=== PATIENT | female | born 1995 | race Caucasian/White ===

== ENCOUNTER 2023-05-19 21:35 | Emergency (ER) | payer OTHER, SELFPAY ==
--- NOTE | ~2023-05-19 | CT_ITS ---
Noncontrast CT scan of the lumbar spine CLINICAL HISTORY: Radicular pain TECHNIQUE: Axial noncontrast imaging of the lumbar spine was performed. Sagittal and coronal reformat yaniv images were constructed. Dose reduction technique was used on this scan by utilizing automated ex posure control and iterative reconstruction technique. The dose-length product (DLP) was 921.97 mGy-c m. FINDINGS: There is no acute fracture or subluxation of the lumbar spine. There is posterior orthopedi c hardware at the L5 level. Intervertebral disc spaces are relatively well preserved throughout the l umbar spine. At L1-L2, there is no disc bulge or herniation. No spinal canal stenosis or neural foraminal narrowin g evident. At L2-L3, there is no disc bulge or herniation. No spinal canal stenosis or definite neural foraminal narrowing. At L3-L4, there is no disc bulge or herniation. No spinal canal stenosis or definite neural foraminal narrowing. At L4-L5, there is no disc bulge or herniation. No spinal canal stenosis or neural foraminal narrowin g. At L5-S1, there is no disc bulge or herniation. No spinal canal stenosis or neural foraminal narrowin g evident. Paravertebral soft tissues are unremarkable. Impression: Posterior L5 orthopedic hardware. No other significant findings. Reviewed, dictated and finalized at [facility]. Impression: Posterior L5 orthopedic hardware. No other significant findings.
[2023-05-19 21:59] VITALS: BP 127/85; PULSE 98; RESP 18; TEMP 36.4; O2SAT 99
[2023-05-19] MEDS: ACETAMINOPHEN 500 MG TABLET 1000 MG PO (23:59)
[2023-05-20] MEDS: IBUPROFEN 400 MG TABLET 800 MG PO
[2023-05-20] MEDS: LIDOCAINE 5% PATCH 1 PATCH TRANSDERM (00:01)
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
[2023-05-20 03:02] VITALS: BP 140/78; PULSE 92; RESP 14; TEMP 36.5; O2SAT 100
== END 2023-05-20 03:03 | disposition home or self-care (01) ==
PROVIDERS: Emergency Provider Physician Assistant
DX: M54.16 Radiculopathy, lumbar region (principal); Z98.1 Arthrodesis status
CPT/HCPCS: 72131; 81025; 99284; A9270

== ENCOUNTER 2023-08-06 12:25 | Emergency (ER) | payer OTHER, SELFPAY ==
--- NOTE | ~2023-08-06 | CT_ITS ---
EXAMINATION: CT abdomen pelvis wo con DATE: 08/06/2023 18:01 INDICATION: flank pain TECHNIQUE: Computed tomography (CT) of the abdomen and pelvis was performed without intravenous contr ast. Automated exposure control and iterative reconstruction technique were employed. The dose-length product was 656.46 mGy-cm. COMPARISON: None. FINDINGS: Lower thorax: Unremarkable Liver: Normal. Biliary/Gallbladder: Gallbladder is normal. No bile duct dilation. Pancreas: No mass or duct dilation. Spleen: Normal. Adrenals:No mass. Kidneys: No suspicious mass, obstructing stone, or hydronephrosis. GI tract: No small or large bowel dilation. Surgically absent appendix Mesentery/Peritoneum: No ascites, mass, or free air. Retroperitoneum: No mass. Pelvis: Pelvic organs are within normal limits. Soft Tissues: Soft tissues and body wall unremarkable. Bones: No acute osseous finding. Uncomplicated bilateral L5 pedicle screws. IMPRESSION: No acute abdominopelvic process detected. Reviewed, dictated and finalized at location K. ECTION OFFICER REFORMATORY
[2023-08-06 12:32] VITALS: BP 149/91; PULSE 129; RESP 20; TEMP 36.4; O2SAT 97
[2023-08-06 15:48] VITALS: BP 126/83; PULSE 110; RESP 23; TEMP 36.5; O2SAT 100
[2023-08-06 16:12] LABS: Hemoglobin 14.6 g/dL (12.0-15.0); Mean Corpuscular HGB Conc 34.8 g/dl (32-36); Mean Corpuscular Hemoglobin 33.3 pg (26-34); Mean Corpuscular Volume 95.9 fl (80-100); Mean Platelet Volume 9.3 fl (7.4-10.4); Platelet Count Result 331 k/mm3 (150-375); Red Blood Count 4.38 M/mm3 (4.2-5.4); Red Cell Distribution Width 13.4 % (11.5-14.5); White Blood Count 15.8 K/mm3 (4.5-10.0)
[2023-08-06] MEDS: SODIUM CHLORIDE 0.9% IV 1,000 ML 999 ML IV CONT (16:16)
[2023-08-06 16:22] LABS: Lactic Acid Reflex 1.2 mmol/L (0.7-2.0)
[2023-08-06 16:24] LABS: Alanine Aminotransferase 23 U/L (6-35); Albumin Level 4.5 g/dL (3.5-5.1); Alkaline Phosphatase 182 U/L (38-126); Anion Gap 15 mmol/L (8-16); Aspartate Amino Transferase 32 U/L (14-36); Bilirubin,Total 1.2 mg/dL (0.2-1.3); Blood Urea Nitrogen 10 mg/dL (7-17); Calcium 9.3 mg/dL (8.4-10.2); Carbon Dioxide 17 mmol/L (22-30); Chloride 102 mmol/L (98-107); Estimated CRCL calculation 98 ml/min; Estimated Glomerular Filt Rate > 60; Glucose 93 mg/dL (65-110); Sodium 134 mmol/L (137-145)
[2023-08-06 16:29] LABS: Appearance Urine Clear (Clear); Bacteria Urine None Seen /hpf; Bilirubin Urine Negative (Negative); Blood Urine Negative (Negative); Color Urine Yellow (Yellow); Glucose Urine UA Negative (Negative); Ketones Urine 1+ mg/dL (Negative); Leukocyte Esterase Ur Trace LEU/UL (Negative); Nitrate Urine Negative (Negative); Non Pathogenic Casts 0-2; Protein Urine Negative (Negative); RBC Urine 0-2 /hpf (0-2); Specific Grav Ur 1.003 (1.001-1.035); Squamous Epithelial Cell Urine None seen /hpf (Few); Urobilinogen Urine 0.2 mg/dL (<2.0)
[2023-08-06 16:32] LABS: Add Urine Microscopic? YES
--- NOTE | 2023-08-06 16:41 | ED.GENADULT ---
HPI - General Adult General Chief complaint: Urogenital-Female Stated complaint: kidney/bladder infection Time Seen by Provider: 08/06/23 15:49 History of Present Illness HPI narrative: Patient is a 28-year-old female who presents ER with abdominal cramping and discomfort. Sudden onset today. Associated with some discomfort with urination. Associated with sharp waves of pain. She also reports nausea vomiting with diarrhea. At 1st thought it may have been related to drinking alcohol last night. She is having pain radiating to her right flank and she tried drinking water but has not helped. Related Data Home Medications Medication Instructions Recorded Confirmed etonogestrel 68 mg subdermal 1 implant subdermal ONCE 06/06/23 06/06/23 implant (Nexplanon) Allergies Allergy/AdvReac Type Severity Reaction Status Date / Time No Known Allergies Allergy Verified 08/06/23 12:28 Review of Systems Review of Systems: All systems reviewed & are unremarkable except as noted in HPI and below Constitutional: Constitutional: Denies chills, Reports fatigue and Denies fever(s) Cardiovascular: Cardiovascular: Denies chest pain, Denies rapid heart rate and Denies radiating jaw, neck or arm pain Respiratory: Respiratory: Denies cough and Denies dyspnea Gastrointestinal: Gastrointestinal: Reports abdominal pain, Reports nausea and Reports vomiting Genitourinary: Genitourinary: Reports nocturia, Reports dysuria and Reports flank pain PMFSH Past Medical History Medical History (Updated 08/06/23 @ 18:23 by Ilya Patino MD) Anxiety Migraine Surgical History Surgical History (Updated 06/06/23 @ 13:04 by Nini Downs MA) History of appendectomy History of lumbar fusion Family History Family History (Updated 06/06/23 @ 13:31 by Nini Downs MA) Father Alcohol abuse Mother Alcohol abuse Ovarian cancer Heart disease Sibling Thyroid disease Social History Social History (Updated 06/06/23 @ 13:12 by Nini Downs MA) Social History: caffeine- 2 sodas a day Years smoked: 15 Smoking status: Current every day smoker Tobacco type: cigarettes and e-cigarettes/vaping Alcohol intake: current Alcohol use details: tequila, drinks about 1/2 of a 750 ml bottle a day. 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 HEAD: Normocephalic, atraumatic. ENT: Mucous membranes moist. CHEST: Clear to auscultation. No respiratory distress. HEART: Tachycardic and regular. Normal peripheral pulses. ABDOMEN: Soft, mild diffuse tenderness without guarding, nondistended. right CVA tenderness. EXTREMITIES: Normal range of motion. No edema. SKIN: Warm, dry, no rash. NEURO: Alert and oriented x3. PSYCH: Normal mood and affect. Course Course Emergency Course: patient feeling improved with IV fluid. Still mildly nauseated. Will give Toradol as well as Zofran. No acute pathology within the abdomen. Repeat exam benign. Will prescribe antiemetics and 3 days of antibiotic for UTI. Vital Signs Vital signs: Vital Signs Temperature 97.5 F L 08/06/23 12:32 Pulse Rate 129 H 08/06/23 12:32 Respiratory Rate 20 08/06/23 12:32 Blood Pressure 149/91 H 08/06/23 12:32 Pulse Oximetry 97 08/06/23 12:32 Temperature 97.7 F 08/06/23 15:48
[2023-08-06 16:55] LABS: Band Neutrophils Percent 10 % (0-6); Lymphocytes Absolute Manual 0.63 K/mm3 (1.1-4.5); Monocytes Absolute Manual 0.31 K/mm3 (0.1-0.90); Monocytes Percent Manual 2 % (3-9); Neutrophils Absolute Manual 14.85 K/mm3 (1.7-7.2); Neutrophils Percent Manual 84 % (46-73); Total Cells Counted 100
[2023-08-06 16:56] LABS: Platelet Estimate Adequate (Adequate); Schistocytes None Seen (NORMAL)
[2023-08-06 17:25] VITALS: BP 125/72; PULSE 98; RESP 17; O2SAT 100
[2023-08-06] MEDS: KETOROLAC 30 MG/ML VIAL (*BKC) IV PUSH (19:13)
[2023-08-06] MEDS: ONDANSETRON INJ 4 MG/2 ML VIAL IV PUSH (19:13)
[2023-08-06 19:40] VITALS: BP 123/75; PULSE 92; RESP 18; O2SAT 100
== END 2023-08-06 19:26 | disposition home or self-care (01) ==
PROVIDERS: Emergency Provider Emergency Medicine; PCP Family Medicine
DX: N39.0 Urinary tract infection, site not specified (principal); R11.2 Nausea with vomiting, unspecified; Z98.1 Arthrodesis status; F17.210 Nicotine dependence, cigarettes, uncomplicated; F17.290 Nicotine dependence, other tobacco product, uncomplicated
CPT/HCPCS: 36415; 74176; 80053; 81001; 81025; 83605; 85025; 87086; 87088; 96361; 96374; 96375; 99284; J1885; J2405; J7030

== ENCOUNTER 2023-09-27 14:24 | Emergency (ER) | payer OTHER, SELFPAY ==
--- NOTE | ~2023-09-27 | CT_ITS ---
EXAMINATION: CT cervical spine wo con DATE: 09/27/2023 17:11 INDICATION: Head injury. TECHNIQUE: Computed tomography (CT) of the cervical spine was performed without intravenous contrast. Automated exposure control and iterative reconstruction technique were employed. The dose-length pro duct was 519.49 mGy-cm. COMPARISON: None FINDINGS: There is 5 degrees dextrocurvature of cervicothoracic spine. There is mild kyphosis of lowe r cervical spine. Vertebral body heights and intervertebral disc heights are normal. At C7-T1, there is mild bilateral facet joint osteoarthritis. No neural foraminal stenosis or central canal stenosis. IMPRESSION: 1. No fracture. Reviewed, dictated and finalized at location E. ECT PRODUCT MANAGER IMPRESSION: 1. No fracture.
--- NOTE | ~2023-09-27 | CT_ITS ---
EXAMINATION: CT thoracic lumbar wo con DATE: 09/27/2023 17:16 INDICATION: Back pain. Fall. TECHNIQUE: Computed tomography (CT) of the thoracic and lumbar spine was performed without intravenou s contrast. Automated exposure control and iterative reconstruction technique were employed. The dose -length product was 1367.16 mGy-cm. COMPARISON: Lumbar spine CT 05/20/2023 FINDINGS: CT THORACIC SPINE: There is 4 degrees dextrocurvature of thoracic spine. Vertebral body heights and i ntervertebral disc heights are normal. There is multilevel mild facet joint osteoarthritis. No neural foraminal stenosis or central canal stenosis. CT LUMBAR SPINE: Bone alignment is normal. Vertebral body heights are normal. Intervertebral disc hei ghts are normal. There are pedicle screws at L5. The following disc levels are specifically discussed : L1-L2: The disc does not extend beyond the endplate margin. There is no facet joint osteoarthritis. T here is no neural foraminal stenosis. There is no central canal stenosis. L2-L3: The disc does not extend beyond the endplate margin. There is mild right facet joint osteoarth ritis. There is no neural foraminal stenosis. There is no central canal stenosis. L3-L4: The disc is bulging. There is mild bilateral facet joint osteoarthritis. There is mild bilater al neural foraminal stenosis. There is no central canal stenosis. L4-L5: The disc is bulging. There is severe bilateral facet joint osteoarthritis. There is mild bilat eral neural foraminal stenosis. There is mild central canal stenosis. L5-S1: There is a central protrusion. There is moderate right and severe left facet joint osteoarthri tis. There is no neural foraminal stenosis. There is mild central canal stenosis. IMPRESSION: 1. No fracture. 2. Mild thoracic and lumbar spondylosis. Reviewed, dictated and finalized at location E. PMENT HIRE MANAGER
--- NOTE | ~2023-09-27 | CT_ITS ---
EXAMINATION: CT brain wo con DATE: 09/27/2023 17:09 INDICATION: Head injury. TECHNIQUE: Computed tomography (CT) of the head was performed without intravenous contrast. The mA wa s adjusted according to patient size. Iterative reconstruction technique was employed. The dose-lengt h product was 681.00 mGy-cm. COMPARISON: None FINDINGS: There is no intracranial hemorrhage, acute infarction, or abnormal intracranial mass lesion . The ventricles are normal in size. There is mild mucosal thickening in the paranasal sinuses. The o rbits are normal. The mastoid air cells are normal. IMPRESSION: 1. Normal brain. Reviewed, dictated and finalized at location E. ERT OR LECTURE HALL MANAGER IMPRESSION: 1. Normal brain.
[2023-09-27 14:26] VITALS: BP 129/85; PULSE 99; RESP 18; TEMP 36.3; O2SAT 100
--- NOTE | 2023-09-27 16:42 | ED.GENADULT ---
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 Reports she fell backwards and hit the back of her head and her spine on the ground. Denies LOC, numbness, weakness. Reports she felt a little wobbly and nauseous afterwards but has not had any vomiting or subsequent falls. Denies any further sites of pain or injury. Related Data Home Medications Medication Instructions Recorded Confirmed etonogestrel 68 mg subdermal 1 implant subdermal ONCE 06/06/23 06/06/23 implant (Nexplanon) Allergies Allergy/AdvReac Type Severity Reaction Status Date / Time No Known Allergies Allergy Verified 09/27/23 14:30 Review of Systems Review of Systems: All systems as dictated in [facility] Past Medical History Medical History Anxiety Migraine Surgical History Surgical History History of appendectomy History of lumbar fusion Family History Family History Father Alcohol abuse Mother Alcohol abuse Ovarian cancer Heart disease Sibling Thyroid disease Social History Social History Social History: caffeine- 2 sodas a day Years smoked: 15 Smoking status: Current every day smoker Tobacco type: cigarettes and e-cigarettes/vaping Alcohol intake: current Alcohol use details: tequila, drinks about 1/2 of a 750 ml bottle a day. 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 HEAD: Normocephalic, atraumatic. Mild scalp hematoma to the occiput. EYES: PERRLA and EOMI. ENT: Nares clear, no rhinorrhea or epistaxis. Mucous membranes moist. Oropharynx without tonsillar hypertrophy exudate or other lesions. NECK: Supple. No adenopathy or masses. CHEST: No respiratory distress. Clear to auscultation. No wheezes rales or rhonchi HEART: Regular rate and rhythm. No murmur heard. Normal peripheral pulses. ABDOMEN: Soft, nontender, nondistended, normal active bowel sounds. MSK: Midline spinal tenderness present throughout this C, T, L-spine. No step-off or deformity. No bruises. SKIN: Warm, dry, no rash. NEURO: Alert and oriented x3. No focal deficits. Coordination intact. Ambulatory without difficulty. Negative pronator drift PSYCH: Normal mood and affect. Course Vital Signs Vital signs: Vital Signs Temperature 97.4 F L 09/27/23 14:26 Pulse Rate 99 09/27/23 14:26 Respiratory Rate 18 09/27/23 14:26 Blood Pressure 129/85 09/27/23 14:26 Pulse Oximetry 100 09/27/23 14:26 Oxygen Delivery Room Air 09/27/23 14:26 Temperature 97.4 F L 09/27/23 14:26 Pulse Rate 99 09/27/23 14:26 Respiratory Rate 18 09/27/23 14:26 Blood Pressure 129/85 09/27/23 14:26 Pulse Oximetry 100 09/27/23 14:26 Oxygen Delivery Room Air 09/27/23 14:26 Medical Decision Making MDM Narrative M
[2023-09-27] MEDS: ACETAMINOPHEN 500 MG TABLET 1000 MG PO (16:47)
[2023-09-27] MEDS: IBUPROFEN 600 MG TABLET PO (16:48)
[2023-09-27 17:55] VITALS: BP 128/78; PULSE 79; RESP 18; TEMP 36.6; O2SAT 98
== END 2023-09-27 18:00 | disposition home or self-care (01) ==
LOC: ANHED 16:55
PROVIDERS: Emergency Provider Physician Assistant; PCP Anesthesiology Pain Medicine
DX: S06.0X0A Concussion without loss of consciousness, initial encounter (principal); F17.210 Nicotine dependence, cigarettes, uncomplicated; F17.290 Nicotine dependence, other tobacco product, uncomplicated; Z98.1 Arthrodesis status; W00.0XXA Fall on same level due to ice and snow, initial encounter
CPT/HCPCS: 70450; 72125; 72128; 72131; 81025; 99284; A9270

== ENCOUNTER 2023-10-19 11:53 | Outpatient (CLI) | payer OTHER, SELFPAY ==
--- NOTE | ~2023-10-19 | XR_ITS ---
EXAMINATION: XR lumbar spine 6V w bending DATE: 10/19/2023 12:36 INDICATION: Postlaminectomy syndrome. TECHNIQUE: 6 views of lumbar spine including flexion and extension views were obtained. COMPARISON: Lumbar spine CT 09/27/23 FINDINGS: There is 4 degrees dextrocurvature of lumbar spine. There are pedicle screws in L5. Vertebr al body heights are normal. There is mildly decreased disc height at L4-L5. The spine is hypomobile w ith flexion and extension. There is multilevel facet joint osteoarthritis, severe in lower lumbar spi ne. IMPRESSION: 1. Mild lumbar spondylosis. Reviewed, dictated and finalized at location E. AL SERVICES MANAGER IMPRESSION: 1. Mild lumbar spondylosis.
--- NOTE | ~2023-10-19 | XR_ITS ---
AP view of the pelvis and AP and lateral views of the bilateral hips Clinical history: Pain Findings: No acute fracture or dislocation is seen. Osseous alignment is anatomic. Bilateral hip and SI joint spaces are preserved. Soft tissues are unremarkable. Impression: No significant abnormality is seen. Reviewed, dictated and finalized at [facility]. HAND Impression: No significant abnormality is seen.
--- NOTE | ~2023-10-19 | XR_ITS ---
Left Knee Technique: AP, lateral, and sunrise views were obtained. Clinical History: Pain Findings: No fracture or dislocation is seen. Osseous alignment is anatomic. Joint spaces are preserv ed without degenerative or erosive change. Soft tissues are unremarkable. No joint effusion is seen. Impression: Unremarkable left knee radiographs. Reviewed, dictated and finalized at location . ER SECURITY ADMINISTRATOR Impression: Unremarkable left knee radiographs.
== END 2023-10-19 11:54 | disposition home or self-care (01) ==
LOC: ANHIMG 11:55
PROVIDERS: PCP Anesthesiology Pain Medicine; Visit Provider Anesthesiology Pain Medicine
DX: M47.817 Spondylosis without myelopathy or radiculopathy, lumbosacral region (principal); M96.1 Postlaminectomy syndrome, not elsewhere classified; M46.1 Sacroiliitis, not elsewhere classified; M25.562 Pain in left knee; M25.551 Pain in right hip; M25.552 Pain in left hip
CPT/HCPCS: 72114; 73521; 73562

== ENCOUNTER 2024-01-31 06:41 | Day surgery (SDC) | payer OTHER, SELFPAY ==
[2024-01-25 13:27] VITALS: BMI 32.1
--- NOTE | ~2024-01-31 | XR_ITS ---
EXAMINATION: XR fluoroscopy no charge DATE: 01/31/2024 08:15 INDICATION: Lumbosacral spondylosis. Low back pain. TECHNIQUE: 10 intraoperative fluoroscopic views of the lumbar spine were obtained. I was not present. Fluoroscopy exposure time was 18 seconds. COMPARISON: Lumbar spine radiographs 10/19/2023 FINDINGS: There are changes of posterior instrumentation at L5. There are needles with contrast for m edial branch/dorsal ramus blocks at L3, L4, and L5 bilaterally. IMPRESSION: 1. Bilateral medial branch/dorsal ramus blocks at L3, L4, and L5. Reviewed, dictated and finalized at location A.
--- NOTE | 2024-01-31 06:00 | PM.HPGS ---
History of Present Illness History of Present Illness Consent: Risks, benefits, and alternatives have been discussed and questions answered. Patient agrees to proceed with procedure. Chief complaint: Lumbosacral Spondylosis, Chronic Low back Pain Narrative: Akila Campos is a 28 year old female with chronic, recalcitrant and disabling bilateral lumbosacral back pain secondary to degenerative spondylosis with failure to respond to aggressive conservative measures including PT, oral and topical analgesics, opioid and nonopioid analgesics, rest, time and activity/behavioral modification over the past 1-2 years who presents for diagnostic/prognostic medial branch blocks (#1) under fluoroscopic guidance and with contrast control. Review of Systems Review of Systems: All systems reviewed & are unremarkable except as noted in HPI and below PMFSH Past Medical History Medical History Anxiety Migraine Surgical History Surgical History History of appendectomy History of lumbar fusion Family History Family History Father Alcohol abuse Mother Alcohol abuse Ovarian cancer Heart disease Sibling Thyroid disease Social History Social History Social History: caffeine- 2 sodas a day Years smoked: 15 Smoking status: Current every day smoker Tobacco type: cigarettes and e-cigarettes/vaping Alcohol intake: current Alcohol use details: tequila, drinks about 1/2 of a 750 ml bottle a day. 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 Lack of Transportation: No Lack of Food: Never True Current Housing: I Have Housing Concerned About Future Housing: No Difficulty Paying Gas/Electric Bills: No Difficulty Paying for Meds: No Currently Unemployed: No Education: High School Diploma/GED Difficulty w/ Childcare or Family Care: No Living arrangements: alone Occupation/Education: occupation Gender identity (if verbalized by the patient): Female Meds Home Medications and Allergies Home Medications Medication Instructions Recorded Confirmed Type aripiprazole 10 mg tablet (Abilify) 10 mg PO DAILY 12/21/23 01/31/24 History lamotrigine 100 mg tablet 100 mg PO DAILY 12/21/23 01/31/24 History (Lamictal) Allergies Allergy/AdvReac Type Severity Reaction Status Date / Time No Known Allergies Allergy Verified 01/31/24 07:21 Exam Narrative: The patient's physical exam is essentially unchanged from prior examination on 10/31/2023. Specifically, patient demonstrates normal lung capacity, tidal volume and respiratory rate without wheezes, crackles, rales or rubs. Heart rate and rhythm are regular without murmurs, gallops or rubs. No JVD. Pulses 2+ globally without increasing peripheral edema. AAOx3, NC/AT without acute distress or altered consciousness. Speech, cognition, mood and judgment at baseline and within normal limits. Const: General: cooperative and healthy appearing Nutritional Appearance: average body habitus Orientation/consciousness: patient oriented x3 HENMT: Head: normocephalic and atraumatic Resp: Effort & Inspection: normal respiratory effort Auscultation: clear to auscultation bilaterally Cardio: Jugular venous distension: JVD present Rate: regular rate Rhythm: regular rhythm Peripheral pulses: Peripheral pulses 2+ throughout Neuro: Cranial nerves: Yes CN's II-XII intact bilaterally Cognition (Neuro): normal cognition Speech: normal speech Assessment and Plan Assessment and plan (1) Lumbosacral spondylosis: Code(s): M47.817 - Spondylosis without myelopathy or radiculopathy, lumbosacral region Status: Acute
--- NOTE | 2024-01-31 06:05 | WPDHPUPDATE1 ---
History and Physical Update Update Date/Time: 01/31/24 06:05 History and Physical has been reviewed, including an updated exam of the patient. There are NO changes in the patient's condition. Risks, benefits, and alternatives have been discussed and questions answered. Patient agrees to proceed with procedure.
--- NOTE | 2024-01-31 06:07 | W.PM.PROC2 ---
Procedure Note - Detailed Date of Procedure 01/31/24 Pre-op Diagnosis Lumbosacral Spondylosis, Chronic Low back Pain Post-op Diagnosis Same Procedure Performed Diagnostic Bilateral Lumbar Medial Branch/Dorsal Ramus Blocks at L3, L4, L5 Treating the Ipsilateral L4-5, L5-S1 Facet Joints Under Fluoroscopic Guidance and with Contrast Control. ( 4 levels blocked). Surgeon Kyle Hamilton MD Anesthesia Local Description of Procedure INFORMED CONSENT: Risks, benefits and alternatives to the procedure were discussed in detail with the patient who expressed explicit understanding and consent to proceed. Patient was informed verbally and in written form regarding the risks associated with the procedure including the low risk of serious infection, bleeding/bruising, allergic reaction, nerve or organ injury, paralysis, procedural site pain or discomfort, worsening pain and/or mobility, failure to treat and/or disfigurement. The patient expressed explicit understanding and consent to proceed. All materials required for the procedure were available prior to procedure start. Site and side were marked prior to procedure and confirmed in the presence of the patient. PROCEDURE IN DETAIL: The patient was brought to the procedural suite and placed in the prone position. Patient was made comfortable with use of pillows under the head/chest, hips and ankles. Skin overlying the injection site on the affected side(s) was prepared broadly with ChloraPrep applicator and draped in a sterile manner. Aseptic technique was used throughout. The endplates of the vertebral bodies at the site(s) of interest were aligned in the AP view. Ipsilateral oblique angulation was utilized to optimize visualization of the intersection between the superior articulating process and transverse process at each target site. Local anesthesia was established by infiltration with approximately 5 mL of 1% lidocaine via a 1-1/2 inch 27-gauge needle. A 25-gauge 3.5 inch Quincke spinal needle was advanced until the needle tip contacted periosteum at the target site, right L3. Lateral view was utilized to confirm the appropriate placement of the needle tip just anterior to the facet line and superior to the pedicle. In the Lateral view, 0.25 mL of Omnipaque 300 contrast medium was injected after negative aspiration for CSF, blood or other bodily fluid, showing appropriate extra-articular spread of contrast without evidence of intravascular, foraminal or intrathecal placement. A 0.5 mL solution of 0.5% PF bupivacaine was injected after negative repeat aspiration. Appropriate spread of the injectate was confirmed with washout of previously injected contrast. No parasthesias were elicited. Needle was removed completely intact without difficulty. [The same exact procedure was repeated for all remaining levels on the ipsilateral side, right L4, L5 medial branches/dorsal ramus, modified as necessary to accommodate for the new target location with identical findings and results and no evidence of complication.] [The same exact procedure was repeated for all remaining levels on the contralateral side, left L3, L4, L5 medial branches/dorsal ramus, modified as necessary to accommodate for the new target location with identical findings and results and no evidence of complication.] Images were saved and documented in the patient chart. Patient's skin was cleaned and sterile bandage applied. The patient tolerated the procedure well. The patient was transported to the recovery area in stable condition where they were observed for an appropriate amount of time prior to discharge, without evidence of complication. Patient was instructed on the appropriate completion of a pain diary over the next 12-24 hours. The patient was instructed to avoid excessive activity for the next 48 hours, including climbing and frequent use of stairs. Showers only for 48 hours. They were instructed not to drive or operate heavy machinery for 24 hours.
[2024-01-31 07:31] VITALS: BP 104/78; PULSE 94; RESP 18; TEMP 36.9; O2SAT 99; BMI 31.3
[2024-01-31 08:01] VITALS: BP 107/52; PULSE 89; RESP 14; O2SAT 99
[2024-01-31] MEDS: LIDOCAINE HCL 1% PF INJ 5 ML VIAL INFILTRATE (08:07)
[2024-01-31 08:10] VITALS: BP 105/60; PULSE 97; RESP 20; O2SAT 99
[2024-01-31] MEDS: BUPivacaine HCL 0.5% 10 ML AMP 6 ML INFILTRATE (08:11)
[2024-01-31 08:17] VITALS: BP 107/81; PULSE 88; RESP 18; O2SAT 100
== END 2024-01-31 08:40 | disposition home or self-care (01) ==
PROVIDERS: PCP Family Medicine; Visit Provider Anesthesiology Pain Medicine
PROC: (CPT 64493; principal; 2024-01-31 08:00)
DX: M47.817 Spondylosis without myelopathy or radiculopathy, lumbosacral region (principal); M54.59 Other low back pain
CPT/HCPCS: 64493; 64494; 99199

== ENCOUNTER 2024-03-26 16:57 | Emergency (ER) | payer OTHER, SELFPAY ==
[2024-03-26 17:13] VITALS: BP 118/75; PULSE 123; RESP 16; TEMP 37.4; O2SAT 99
--- NOTE | 2024-03-26 18:00 | ED.SKABFB ---
HPI - Skin/Abscess/Foreign Bdy General Chief complaint: Skin/Abscess/Foreign Body Stated complaint: right ear infection Time Seen by Provider: 03/26/24 18:01 Source: patient Mode of arrival: ambulatory Limitations: no limitations History of Present Illness HPI narrative: 29-year-old female presented for complaint of an infected right earlobe worsening over the past week. patient has a large gauge in the lobe for years. Started with mild drainage, she has been cleaning it with hydrogen peroxide. Endorses bloody drainage, crust, and severe pain to the site. She attempted to remove the gauge but could not tolerate the pain. Related Data Home Medications Medication Instructions Recorded Confirmed aripiprazole 10 mg tablet (Abilify) 10 mg PO DAILY 12/21/23 03/26/24 lamotrigine 100 mg tablet 100 mg PO DAILY 12/21/23 03/26/24 (Lamictal) Allergies Allergy/AdvReac Type Severity Reaction Status Date / Time No Known Allergies Allergy Verified 01/31/24 07:21 Review of Systems Review of Systems: CONSTITUTIONAL: Denies body aches, fever, chills, or sweats. EYES: Denies visual changes, redness, or discharge. ENT: Denies rhinorrhea, congestion CARDIOVASCULAR: Denies chest pain, palpitations, or edema. RESPIRATORY: Denies cough or dyspnea. GASTROINTESTINAL: Denies abdominal pain, nausea, vomiting, or diarrhea. SKIN: Per HPI MUSCULOSKELETAL: Denies back pain, joint pain, or myalgia. NEUROLOGIC: Denies headache, numbness, tingling, or weakness. [facility] Past Medical History Medical History Anxiety Migraine Surgical History Surgical History History of appendectomy History of lumbar fusion Family History Family History Father Alcohol abuse Mother Alcohol abuse Ovarian cancer Heart disease Sibling Thyroid disease Social History Social History Social History: caffeine- 2 sodas a day Years smoked: 15 Smoking status: Current every day smoker Tobacco type: cigarettes and e-cigarettes/vaping Alcohol intake: current Alcohol use details: tequila, drinks about 1/2 of a 750 ml bottle a day. 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 Please see nursing chart for further information. There is no relevant family history pertinent to the presenting complaint Exam Narrative: GENERAL: Well-appearing HEAD: Normocephalic, atraumatic. EYES: conjunctivae clear, and EOMI. ENT: Mucous membranes moist. Oropharynx without edema, erythema or lesions. right ear lobe with large gauge in place, significant swelling and large amount of crusted purulent and bloody drainage surrounding the site. Tender with touch. Preauricular lymphadenopathy noted. NECK: Supple. CHEST: Clear to auscultation. HEART: Regular rate and rhythm. SKIN: Warm, dry. NEURO: Alert and oriented x3. HENMT: Outer ear/TM images: 1. area of gauge and cellulitis Course Course Emergency Course: Patient is aware of diagnosis, understands and agrees to treatment plan. Anticipatory guidance given. Patient agrees to
== END 2024-03-26 18:19 | disposition home or self-care (01) ==
PROVIDERS: Emergency Provider Nurse Practitioner Family; PCP Family Medicine
DX: H60.11 Cellulitis of right external ear (principal); F17.219 Nicotine dependence, cigarettes, with unspecified nicotine-induced disorders; F17.290 Nicotine dependence, other tobacco product, uncomplicated
CPT/HCPCS: 99213; G0463

== ENCOUNTER 2024-08-20 12:01 | Emergency (ER) | payer OTHER, SELFPAY ==
[2024-08-20 12:11] VITALS: BP 126/82; PULSE 99; RESP 16; TEMP 36.3; O2SAT 100
[2024-08-20 12:19] LABS: EDUAAPPEAR Cloudy; EDUABILI Negative (Negative); EDUABLOOD 3+ (Negative); EDUACOLOR1 Yellow; EDUAGLUCOSE Negative (Negative); EDUAKETONE Negative (Negative); EDUALEUKO 1+ (Negative); EDUANITRATE Negative (Negative); EDUAPROTEIN 1+ (Negative); EDUASPGRAVITY 1.015; EDUAUROBILI 0.2
--- NOTE | 2024-08-20 12:21 | ED_ITS ---
HPI - Female Genitourinary General Chief complaint: Urogenital-Female Stated complaint: poss bladder infection/poss pnuemonia Time Seen by Provider: 08/20/24 12:21 Source: patient Mode of arrival: ambulatory Limitations: no limitations History of Present Illness HPI Narrative: 29-year-old female presents with complaint of urinary frequency, urgency, dysuria for 2-3 days. afebrile. No back or abdominal pain. No concern for STI. Patient also reports cough, nasal congestion, sore throat for 2-3 days. Not taking any [id number] medications to treat symptoms. I do not like to take medications . Denies nausea vomiting. All systems reviewed and negative except as noted above. Related Data Home Medications Medication Instructions Recorded Confirmed aripiprazole 10 mg tablet (Abilify) 10 mg PO DAILY 12/21/23 03/26/24 lamotrigine 100 mg tablet 100 mg PO DAILY 12/21/23 03/26/24 (Lamictal) Allergies Allergy/AdvReac Type Severity Reaction Status Date / Time No Known Allergies Allergy Verified 01/31/24 07:21 Review of Systems Review of Systems: CONSTITUTIONAL: Denies fever, chills, or sweats. EYES: Denies visual changes, redness, or discharge. ENT: reports rhinorrhea, congestion, sore throat. Denies otalgia. CARDIOVASCULAR: Denies chest pain, palpitations, or edema. RESPIRATORY reports cough. Denies dyspnea. GASTROINTESTINAL: Denies abdominal pain, nausea, vomiting, or diarrhea. GENITOURINARY: reports dysuria, frequency, urgency. Denies hematuria. SKIN: Denies rash or itching. MUSCULOSKELETAL: Denies back pain, joint pain, or myalgia. NEUROLOGIC: Denies headache, numbness, or weakness. PSYCHIATRIC: Denies anxiety or depression. All other systems reviewed are negative, except as documented in HPI. COUNT INCLUDES THE [facility] Past Medical History Medical History Anxiety Migraine Surgical History Surgical History History of appendectomy History of lumbar fusion Family History Family History Father Alcohol abuse Mother Alcohol abuse Ovarian cancer Heart disease Sibling Thyroid disease Social History Social History Social History: caffeine- 2 sodas a day Years smoked: 15 Smoking status: Current every day smoker Tobacco type: cigarettes and e-cigarettes/vaping Alcohol intake: current Alcohol use details: tequila, drinks about 1/2 of a 750 ml bottle a day. 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 There is no relevant family history pertinent to the presenting complaint. Exam Narrative: GENERAL: This is a well-nourished, well-developed patient, in no apparent distress. HEAD: normocephalic, atraumatic. EYES: PERRL. Sclera clear/white. Vision is grossly intact. EARS: External ears normal, auditory canals clear and without drainage, TMs normal without perforation. Hearing grossly intact. NOSE: External nose normal with clear nasal drainage, mild erythema and swelling to bilateral nares THROAT: Mucous membranes moist, posterior pharynx clear. NECK: Neck supple, non-tender without lymphadenopathy, masses or thyromegaly. CARDIOVASCULAR: Regular rate and rhythm without murmurs, gallops, or rubs. RESPIRATORY: Clear to auscultation. Breath sounds equal bilaterally. No wheezes, rales, or rhonchi. SKIN: warm, Dry, intact with no suspicious lesions or rash, good texture and turgor. NEURO: awake, alert, and oriented to person, place and time. There were no obvious focal neurologic abnormalities. EXTREMITIES: No joint tenderness, effusion, or edema noted. Course Course Level of Care: Express Care Visit Vital Signs Vital signs: Vital Signs Temperature 36.3 C L 08/20/24 12:11 Pulse Rate 99 08/20/24 12:11 Respiratory Rate 16 08/20/24 12:11 Blood Pressure 126/82 08/20/24 12:11 Pulse Oximetry 100 08/20/24 12:11 Oxygen Delivery Room Air 08/20/24 12:11 Temperature 36.3 C L 08/20/24 12:11 Pulse Rate 99 08/20/24 12:11 Respiratory Rate 16 08/20/24 12:11 Blood Pressure 126/82 08/20/24 12:11 Pulse Oximetry 100 08/20/24 12:11 Oxygen Delivery Room Air 08/20/24 12:11 reviewed MDM - Female Genitourinary MDM Narrative Medical decision making narrative: patient is well-appearing. Lungs clear to auscultation. Urinalysis leukocytes 1+, blood 3+. Will treat patient with antibiotic due to urinary symptoms, urinalysis results. Patient agrees with plan of care. Patient is aware of diagnosis, understands and agrees to treatment plan. Anticipatory guidance given. Patient agrees to follow-up as directed and is aware of reasons to seek care at the emergency department. Portions of this record may have been created with voice recognition software Lab Data Labs: Lab Results 08/20/24 Range/Units 12:12 POC Urine Color Yellow POC Urine Clarity Cloudy POC Urine pH 6.0 POC Ur Specif [place] 1.015 POC Urine Protein 1+ (Negative) POC Ur Glucose (UA) Negative (Negative) POC Urine Ketones Negative (Negative) POC Urine Blood 3+ (Negative) POC Urine Nitrite Negative (Negative) POC Urine Bilirubin Negative (Negative) POC Urine Urobilinogen 0.2 POC U Leukocyte Esteras 1+ (Negative) Discharge Plan Discharge Clinical Impression: Urinary tract infection, Viral upper respiratory tract infection with cough Patient Disposition: Home, Self-Care Condition: Stable Instructions: Antibiotic Form, Urinary Tract Infection in Women (ED) Additional Instructions: Take antibiotic as prescribed to treat urinary tract infection. May take [id number] azo as needed for urinary symptoms. Your Upper respiratory symptoms are viral and may last 10-14 days. Continue taking [id number] DayQuil and NyQuil cold and flu to treat sy mptoms. Drink at least 64 oz of water a day. Place cool mist humidifier in bedroom where you sleep. Follow-up with your primary care physician if symptoms are not improving. Prescriptions: New amoxicillin-pot clavulanate [Augmentin] 500-125 mg tablet 1 tablet PO BID 5 Days Qty: 10 0RF No Action lamotrigine [Lamictal] 100 mg tablet 100 mg PO DAILY aripiprazole [Abilify] 10 mg tablet 10 mg PO DAILY Follow-up/Referrals: Flor Ashton DO [Primary Care Provider] - Time of Disposition: 12:27
== END 2024-08-20 12:33 | disposition home or self-care (01) ==
PROVIDERS: Emergency Provider Nurse Practitioner Family; PCP Family Medicine
DX: N39.0 Urinary tract infection, site not specified (principal); J06.9 Acute upper respiratory infection, unspecified; R05.9 Cough, unspecified; F17.210 Nicotine dependence, cigarettes, uncomplicated; F17.290 Nicotine dependence, other tobacco product, uncomplicated; F41.9 Anxiety disorder, unspecified
CPT/HCPCS: 81003; 87086; 99213; G0463